=== PATIENT | male | born 1955 | race American Indian/Alaskan Native ===

== ENCOUNTER 2021-10-28 16:06 | Emergency (ER) | payer MEDICARE ==
[2021-10-28 18:35] LABS: Bilirubin,Urine NEG (Negative); Blood,Urine NEG (Negative); Color,Urine Yellow (Yellow); Protein,Urine <15 mg/dL mg/dL (Negative); Urobilinogen,Urine < 2.0 mg/dL (<2.0)
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
[2021-10-28 18:37] LABS: Mucus,Urine FEW /HPF; RBC,Urine < 1.0 /HPF (0.0-6.0)
[2021-10-28 18:39] LABS: Amphetamine Screen,Urine Negative; Benzodiazepines Screen,Urine Negative; Cannabinoid Screen,Urine Negative; Cocaine Screen,Urine Negative; Methadone Screen,Urine Negative; Opiate Screen,Urine Negative
[2021-10-28 18:59] LABS: Hematocrit 42.9 % (35.5-45.6); Hemoglobin 14.8 gm/dl (11.8-15.2); Mean Corpuscular Volume 93 fl (84-94); Red Blood Count 4.62 M/mm3 (3.65-5.03)
[2021-10-28 19:00] LABS: Basophils # (Auto) 0.1 K/mm3 (0.0-0.1); Basophils % (Auto) 1.3 % (0.0-1.8); Eosinophils # (Auto) 0.4 K/mm3 (0.0-0.4); Eosinophils % (Auto) 3.8 % (0.0-4.3); Lymphocytes # (Auto) 1.4 K/mm3 (1.2-5.4); Lymphocytes % (Auto) 14.1 % (13.4-35.0); Mean Corpuscular HGB Conc 35 % (32-34); Mean Platelet Volume 8.3 fl (6-12); Monocytes # (Auto) 0.5 K/mm3 (0.0-0.8); Monocytes % (Auto) 5.5 % (0.0-7.3); Platelet Count 297 K/mm3 (140-440); Red Cell Distribution Width 12.9 % (13.2-15.2)
[2021-10-28 19:07] LABS: Albumin 4.6 g/dL (3.9-5); Calcium 9.5 mg/dL (8.4-10.2)
[2021-10-28] MEDS ORDERED: METOPROLOL TARTRATE 50 MG TAB PO ONE (19:07)
[2021-10-28] MEDS ORDERED: ACETAMINOPHEN 500 MG TAB PO ONE (19:38)
[2021-10-28] MEDS: LOSARTAN 50 MG TAB PO SCH (22:00)
[2021-10-28] MEDS: TAMSULOSIN 0.4 MG CAP PO SCH (22:00)
[2021-10-28] MEDS: hydroCHLOROthiazide 25 MG TAB PO SCH (22:08)
[2021-10-29] MEDS ORDERED: LEVOTHYROXINE 25 MCG TAB PO SCH (06:00)
[2021-10-29] MEDS: TAMSULOSIN 0.4 MG CAP PO SCH (09:52)
[2021-10-29] MEDS: hydroCHLOROthiazide 25 MG TAB PO SCH (09:52)
[2021-10-29] MEDS: LOSARTAN 50 MG TAB PO SCH (09:52)
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
[2021-10-29] MEDS ORDERED: SERTRALINE 25 MG TAB PO SCH (11:00)
--- NOTE | 2021-10-29 11:16 | Event Note ---
Date: 10/29/21 Chart reviewed. No signficant overnight events. VSS. Pt is calm, cooperative,and well appearing. He denies any complaints. He is awaiting final disposition via Mental Health, for acute inpatient psychiatric hospitalization.
[2021-10-29 12:33] VITALS: BP 136/76
[2021-10-29] MEDS ORDERED: traZODone 50 MG TAB PO SCH (22:00)
== END 2021-10-29 12:27 ==
LOC: ED 16:06
DX: R45.851 Suicidal ideations (principal); I10 Essential (primary) hypertension; F32.A Depression, unspecified; Z20.822 Contact with and (suspected) exposure to COVID-19
CPT/HCPCS: 36415; 80053; 80307; 81001; 85025; 99285; U0003; 80320; G0480